=== PATIENT | female | born 1980 | race Caucasian/White ===

== ENCOUNTER 2017-05-09 19:36 | Observation (INO) | payer BC | END 2017-05-09 20:15 | disposition still patient (30) | LOC: FLD 19:36 | PROVIDERS: ADMIT Obstetrics & Gynecology; ATTEND Obstetrics & Gynecology | DX: O99.89 Other specified diseases and conditions complicating pregnancy, childbirth and the puerperium (principal); R42 Dizziness and giddiness; R11.2 Nausea with vomiting, unspecified; Z3A.34 34 weeks gestation of pregnancy | CPT/HCPCS: G0378 ==

== ENCOUNTER 2017-05-09 20:17 | Emergency (ER) | payer BC ==
[2017-05-09] MEDS ORDERED: ONDANSETRON 4 MG/2 ML VIAL ONE (20:22)
--- NOTE | 2017-05-09 20:38 | EDPHY ---
H & P Time Seen by Provider: 05/09/17 20:24 HPI/ROS: CHIEF COMPLAINT: Nausea dizziness HISTORY OF PRESENT ILLNESS: This is a 36-year-old female 34 weeks Ob complaining of dizziness room spinning with nausea onset around 1700. Patient states she she had just recently gotten older upper respiratory infection with sinus pressure, has had this lingering cough with ear pressure but symptoms had been resolving. Patient states she been fine all day today up until 1700 when she went to get up and felt the room was spinning with nausea. Patient states" I spoke with my Ob doctor they wanted me to come to the emergency department to be checked out". Patient was initially seen upstairs on the OB/ L & D floor evaluated Dr. Cassi R.N. stated everything was fine was sent down to the emergency department to be evaluated for ear pressure and dizziness. REVIEW OF SYSTEMS: Constitutional: No fever, no chills. Eyes: No discharge. No blurred vision ENT: No sore throat. Cardiovascular: No chest pain, no palpitations. Respiratory: No cough, no shortness of breath. Gastrointestinal: No abdominal pain, 1 episode of nausea vomiting 34 weeks Ob Genitourinary: No hematuria. Musculoskeletal: No back pain. Skin: No rashes. Neurological: No headache. Intermittent dizziness" room spinning" Physical Exam: General Appearance: Alert, no distress HEENT: Normocephalic atraumatic Pupils equal and round no pallor or injection. TMs non serous middle ear effusion nontender on exam. Mucous membranes moist. Respiratory: There are no retractions, lungs are clear to auscultation. Cardiovascular: Regular rate and rhythm. Gastrointestinal: 34 weeks gestational, nontender Neurological: No focal deficits. Answering questions appropriately Skin: Warm and dry, no rashes. Musculoskeletal: Neck is supple nontender. Extremities: symmetrical, full range of motion. Psychiatric: Patient is oriented X 3, acting appropriately Constitutional: Initial Vital Signs Temperature (C) 36.8 C 05/09/17 20:17 Heart Rate 65 05/09/17 20:17 Respiratory Rate 16 05/09/17 20:17 Blood Pressure 118/62 05/09/17 20:17 O2 Sat (%) 99 05/09/17 20:17 O2 Delivery Mode Room Air Allergies/Adverse Reactions: amoxicillin Allergy (Verified 05/09/17 20:54) Penicillins Allergy (Verified 05/09/17 20:54) Home Medications: Medication Instructions Recorded Acyclovir 05/09/17 Iron 1 tab DAILY 05/09/17 Meclizine HCl [Meclizine HCl 25 mg 25 mg PO BID PRN #10 tab 05/09/17 (RX,OTC)] 1-1 Tablet 1 tab DAILY 05/09/17 Medical Decision Making ED Course/Re-evaluation: Discussed the plan of care with patient: IV fluids for dehydration, meclizine, CBC, BMP. Will re-evaluate 2129: Patient re-evaluation--->NAD, patient denies any nausea vomiting or dizziness. Patient was able to stand up without room spinning. 2199: Patient reports feeling better, "I would like to go home just get some rest". Discharge home---> stable, ambulatory without dizziness or vertigo. Discussed all discharge instructions with patient Differential Diagnosis: Other differential diagnosis considered not limited to syncope, AMS, dehydration , and migraine - Data Points Laboratory Results: Laboratory Results 05/09/17 20:40 05/09/17 20:40 05/09/17 05/09/17 20:40 20:40 WBC 9.65 10^3/uL H 10^3/uL (3.80-9.50) RBC 3.71 10^6/uL L 10^6/uL (4.18-5.33) Hgb 11.3 g/dL L g/dL (12.6-16.3) Hct 33.6 % L % (38.0-47.0) MCV 90.6 fL fL (81.5-99.8) MCH 30.5 pg pg (27.9-34.1) MCHC 33.6 g/dL g/dL (32.4-36.7) RDW 13.7 % % (11.5-15.2) Plt Count 187 10^3/uL 10^3/uL (150-400) MPV 9.8 fL fL (8.7-11.7) Neut % (Auto) 75.6 % H % (39.3-74.2) Lymph % (Auto) 16.1 % % (15.0-45.0) [place] % (Auto) 6.1 % % (4.5-13.0) Eos % (Auto) 0.8 % % (0.6-7.6) Baso % (Auto) 0.3 % % (0.3-1.7) Nucleat RBC Rel Count 0.0 % % (0.0-0.2) Absolute Neuts (auto) 7.29 10^3/uL H 10^3/uL (1.70-6.50) Absolute Lymphs (auto) 1.55 10^3/uL 10^3/uL (1.00-3.00) Absolute Monos (auto) 0.59 10^3/uL 10^3/uL (0.30-0.80) Absolute Eos (auto) 0.08 10^3/uL 10^3/uL (0.03-0.40) Absolute Basos (auto) 0.03 10^3/uL 10^3/uL (0.02-0.10) Absolute Nucleated RBC 0.00 10^3/uL 10^3/uL (0-0.01) Immature Gran % 1.1 % % (0.0-1.1) Immature Gran # 0.11 10^3/uL H 10^3/uL (0.00-0.10) Sodium 140 mEq/L mEq/L (134-144) Potassium 3.5 mEq/L mEq/L (3.5-5.2) Chloride 109 mEq/L mEq/L (97-110) Carbon Dioxide 20 mEq/l L mEq/l (22-31) Anion Gap 11 mEq/L mEq/L (8-16) BUN 5 mg/dL L mg/dL (7-23) Creatinine 0.5 mg/dL L mg/dL (0.6-1.0) Estimated GFR > 60 Glucose 70 mg/dL mg/dL (70-100) Calcium 8.8 mg/dL mg/dL (8.5-10.4) Medications Given: Discontinued Medications Meclizine HCl (Meclizine Hcl) 25 mg PO EDNOW ONE Stop: 05/09/17 20:43 Last Admin: 05/09/17 20:53 Dose: 25 mg Departure - Departure Disposition: Home, Routine, Self-Care Clinical Impression: Acute effusion of both middle ears, Vertigo Condition: Good Instructions: Vertigo (ED), Dizziness (ED) Additional Instructions: 1. Increase fluid intake. Rest 2. 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 I have given you a prescription for meclizine this is a safe medication for during for vertigo Referrals: NONE *PRIMARY CARE P,. [Primary Care Provider] - As per Instructions [facility],. [Clinic] - As per Instructions Prescriptions: Meclizine HCl [Meclizine HCl 25 mg (RX,OTC)] 25 mg PO BID PRN #10 tab PRN Reason: Dizziness
[2017-05-09] MEDS ORDERED: MECLIZINE HCL 25 MG TAB PO ONE ×2 (20:42→22:08)
[2017-05-09 20:58] LABS: % IMMATURE GRANULYOCYTES 1.1 % (0.0-1.1); ABSOLUTE IMMATURE GRANULOCYTES 0.11 10^3/uL (0.00-0.10); ADD DIFF? NO; ADD MORPH? NO; ADD SCAN? NO; ATYPICAL LYMPHOCYTE FLAG 20 (0-99); FRAGMENT RBC FLAG 0 (0-99); HEMATOCRIT 33.6 % (38.0-47.0); HEMOGLOBIN 11.3 g/dL (12.6-16.3); LEFT SHIFT FLG 10 (0-99); LIPEMIA HEMOLYSIS FLAG 80 (0-99); MEAN CELL HEMOGLOBIN 30.5 pg (27.9-34.1); MEAN CELL HEMOGLOBIN CONCENTR. 33.6 g/dL (32.4-36.7); MEAN CELL VOLUME 90.6 fL (81.5-99.8); MEAN PLATELET VOLUME 9.8 fL (8.7-11.7); PLATELET CLUMPS FLAG 0 (0-99); PLATELET COUNT 187 10^3/uL (150-400); RED BLOOD CELL COUNT 3.71 10^6/uL (4.18-5.33); RED CELL DISTRIBUTION WIDTH 13.7 % (11.5-15.2)
[2017-05-09 21:10] LABS: ANION GAP 11 mEq/L (8-16); CALCIUM 8.8 mg/dL (8.5-10.4); CARBON DIOXIDE 20 mEq/l (22-31); CHLORIDE 109 mEq/L (97-110); CREATININE 0.5 mg/dL (0.6-1.0); GLOMERULAR FILTRATION RATE > 60; GLUCOSE 70 mg/dL (70-100); POTASSIUM 3.5 mEq/L (3.5-5.2); SODIUM 140 mEq/L (134-144)
[2017-05-09 21:18] VITALS: RESP 16; TEMP 98.2; O2SAT 99
[2017-05-09 22:16] VITALS: BP 105/62; PULSE 83
== END 2017-05-09 22:16 | disposition home or self-care (01) ==
DX: H65.193 Other acute nonsuppurative otitis media, bilateral (principal)
CPT/HCPCS: J2405

== ENCOUNTER 2017-06-16 19:58 | Inpatient (IN) | payer BC ==
[2017-06-16] MEDS ORDERED: TERBUTALINE SULFATE 1 MG/ML VIAL IV PRN (21:59)
[2017-06-16] MEDS ORDERED: LR 1,000 ML IV PRN (21:59)
[2017-06-16] MEDS ORDERED: IBUPROFEN 600 MG TAB PO PRN (21:59)
[2017-06-16] MEDS ORDERED: OXYTOCIN/RINGERS LACTATE 1,000 ML IV PRN (21:59)
[2017-06-16] MEDS ORDERED: OLIVE OIL 118 ML BTL MISC PRN (21:59)
[2017-06-16] MEDS ORDERED: EPSOM SALT 454 GM TP PRN (21:59)
[2017-06-16 22:18] LABS: % IMMATURE GRANULYOCYTES 0.7 % (0.0-1.1); ABSOLUTE IMMATURE GRANULOCYTES 0.08 10^3/uL (0.00-0.10); ADD DIFF? NO; ADD MORPH? NO; ADD SCAN? NO; ATYPICAL LYMPHOCYTE FLAG 10 (0-99); FRAGMENT RBC FLAG 0 (0-99); HEMATOCRIT 37.5 % (38.0-47.0); HEMOGLOBIN 12.8 g/dL (12.6-16.3); LEFT SHIFT FLG 10 (0-99); LIPEMIA HEMOLYSIS FLAG 90 (0-99); MEAN CELL HEMOGLOBIN 31.2 pg (27.9-34.1); MEAN CELL HEMOGLOBIN CONCENTR. 34.1 g/dL (32.4-36.7); MEAN CELL VOLUME 91.5 fL (81.5-99.8); MEAN PLATELET VOLUME 10.1 fL (8.7-11.7); PLATELET CLUMPS FLAG 0 (0-99); PLATELET COUNT 191 10^3/uL (150-400); RED CELL DISTRIBUTION WIDTH 14.1 % (11.5-15.2)
[2017-06-16] MEDS ORDERED: LIDOCAINE 1% 300 MG/30 ML SDV ONE (22:28)
[2017-06-16] MEDS ORDERED: OLIVE OIL 118 ML BTL ONE (22:28)
[2017-06-16] MEDS ORDERED: MISOPROSTOL 200 MCG TAB ONE (22:29)
[2017-06-16] MEDS ORDERED: OXYTOCIN 10 UNIT/ML VIAL ONE (22:29)
[2017-06-16] MEDS ORDERED: AMMONIA AROMATIC 1 EACH AMP IH ONE (22:29)
[2017-06-16] MEDS ORDERED: TERBUTALINE SULFATE 1 MG/ML VIAL ONE (22:29)
[2017-06-16] MEDS ORDERED: VANCOMYCIN HCL/NORMAL SALINE 250 ML IV SCH (23:00)
[2017-06-16] MEDS ORDERED: PHENYLEPHRINE HCL 100 MCG/ML SYR ONE ×2 (23:07→23:08)
[2017-06-16] MEDS ORDERED: fentaNYL 2MCG/ML/BUP 0.1% RTU 100 ML BAG EP ONE (23:07)
--- NOTE | 2017-06-16 23:28 | OBPROG ---
OBG Labor Progress Note Assessment/Plan: Assessment: 36 y/o @ 39 4/7 wks who presents with previous c/s in early labor, desires Plan: SROM - clear fluid noted FHTs -Category I tracing No cervical change noted on repeat exam Pt is considering an epidural Has a car cooper present 06/16/17 23:24 Subjective: Pt is having pain with ctx's and has tried TENS unit with minimal relief. She is c/o +LOF - big gush of fluid noted. Objective: 06/16/17 21:55 Patient ABO/Rh O POSITIVE 06/16/17 21:55 - SVE Dilation (cm): 3 (3-4) Effacement (%): 90 Station: -2 Oxytocin Orders Assessment - Pre-Induction/Augmentation Assessment Gestational Age: 39 week(s) and 4 day(s) ICD10 Worksheet Patient Problems: Problems Problem Status Onset Desires (vaginal after ) trial Acute GBS (group B Streptococcus carrier), +RV culture, currently Acute Previous delivery affecting , antepartum Acute - ICD10 Problem Qualifiers (1) Previous delivery affecting , antepartum (2) Desires (vaginal after ) trial (3) GBS (group B Streptococcus carrier), +RV culture, currently
--- NOTE | 2017-06-16 23:40 | PREANESOB ---
Obstetric Pre-Anesthesia Info - General Info : 3 Para: 1 - Info Status: Full Term FHR Pattern: Reassuring - Labor Status Cervical Dilation per last OB SVE: 3 (3-4) Station per last OB SVE: -2 Indications for Labor Analgesia: Pain Control Labor Epidural: Yes Anesthesia Allergies/Adverse Reactions: Allergy/AdvReac Type Severity Reaction Status Date / Time amoxicillin Allergy Verified 05/09/17 20:54 Penicillins Allergy Verified 05/09/17 20:54 Home Medications: Medication Instructions Recorded Acyclovir 05/09/17 Iron 1 tab DAILY 05/09/17 Meclizine HCl [Meclizine HCl 25 mg 25 mg PO BID PRN #10 tab 05/09/17 (RX,OTC)] 1-1 Tablet 1 tab DAILY 05/09/17 Visit Medications: Generic Name Dose Route Start Last Admin Trade Name Freq PRN Reason Stop Dose Admin Lactated Ringer's 1,000 mls @ 0 mls/hr 06/16/17 21:59 06/16/17 22:57 Lr IV 12/13/17 21:58 1,000 mls PRN PRN Administration SEE PROTOCOL CONDITIONS Protocol Per Protocol Oxytocin/Lactated Ringer's 1,000 mls @ 150 mls/hr 06/16/17 21:59 Pitocin 20 Units/Lr (Premix) IV PRN PRN Post- bleeding Vancomycin/Sodium Chloride 250 mls @ 250 mls/hr 06/16/17 23:00 06/16/17 22:50 Vancomycin 1 Gm (Premix) IV 07/16/17 22:59 250 mls Q12H CYNDIE Administration Fentanyl/Bupivacaine HCl 100 mls @ 0 mls/hr 06/16/17 23:45 Fentanyl/Bupivacaine/Ns 2 Mcg/Ml 0.1% (Premix EP 06/26/17 23:44 CONT CYNDIE Protocol As Directed Lactated Ringer's 500 mls @ 0 mls/hr 06/16/17 23:45 Lr IV 12/13/17 23:44 CONT CYNDIE As Directed Ibuprofen 600 mg 06/16/17 21:59 Motrin PO 12/13/17 21:58 Q6HRS PRN post , inflammation Magnesium Sulfate 454 gm 06/16/17 21:59 Epsom Salt TP 12/13/17 21:58 Q1H PRN perineal discomfort [place] Oil 118 ml 06/16/17 21:59 Sweet Oil MISC 12/13/17 21:58 ONCE PRN preneal massage Terbutaline Sulfate 0.25 mg 06/16/17 21:59 Brethine IV 12/13/17 21:58 ONCE PRN Tachysystole Discontinued Medications Generic Name Dose Route Start Last Admin Trade Name Nichole PRN Reason Stop Dose Admin Ammonia (Aromatic Spirit) Confirm 06/16/17 22:29 Ammonia Aromatic Administered 06/16/17 22:30 Dose 1 each IH .STK-MED ONE Ephedrine Sulfate Confirm 06/16/17 22:29 Ephedrine Sulfate Administered 06/16/17 22:30 Dose 50 mg .ROUTE .STK-MED ONE Fentanyl/Bupivacaine HCl Confirm 06/16/17 23:07 Fentanyl/Bupivacaine/Ns 2 Mcg/Ml 0.1% (Premix Administered 06/16/17 23:08 Dose 100 ml EP .STK-MED ONE Lidocaine HCl Confirm 06/16/17 22:28 Lidocaine Hcl 1% Administered 06/16/17 22:29 Dose 300 mg .ROUTE .STK-MED ONE Misoprostol Confirm 06/16/17 22:29 Cytotec Administered 06/16/17 22:30 Dose 800 mcg .ROUTE .STK-MED ONE [place] Oil Confirm 06/16/17 22:28 Sweet Oil Administered 06/16/17 22:29 Dose 118 ml .ROUTE .STK-MED ONE Oxytocin Confirm 06/16/17 22:29 Pitocin Administered 06/16/17 22:30 Dose 40 unit .ROUTE .STK-MED ONE Phenylephrine HCl Confirm 06/16/17 23:07 Neosynephrine Administered 06/16/17 23:08 Dose 1,000 mcg .ROUTE .STK-MED ONE Phenylephrine HCl Confirm 06/16/17 23:08 Neosynephrine Administered 06/16/17 23:09 Dose 1,000 mcg .ROUTE .STK-MED ONE Terbutaline Sulfate Confirm 06/16/17 22:29 Brethine Administered 06/16/17 22:30 Dose 1 mg .ROUTE .STK-MED ONE - Anesthesia History Response to Local Anesthetics: Not Applicable Anesthesia & Operative History: No Prior Problems - Focused Exam Height/Weight (Nursing): Height 160.02 cm Weight 71.668 kg Respiratory: normal breath sounds Cardiovascular: normal peripheral pulses ASA Status: I Labs: 08/23/17 21:55 Patient ABO/Rh O POSITIVE 06/16/17 21:55 - Plan Anesthetic Plan: Labor epidural Consent Signed and on Chart: Yes
[2017-06-16] MEDS ORDERED: fentaNYL 2MCG/ML/BUP 0.1% RTU 100 ML EP SCH (23:45)
[2017-06-16] MEDS ORDERED: LR 500 ML IV SCH (23:45)
[2017-06-16] MEDS ORDERED: LIDO/EPI 2% **for epidural** 20 ML SDV ONE (23:46)
--- NOTE | 2017-06-17 00:09 | GHP ---
[f rep st] HISTORY AND PHYSICAL DATE OF ADMISSION: 06/16/2017 ADMITTING DIAGNOSES: 1. Intrauterine at 39 weeks and 4 days. 2. Early labor. 3. Previous section, desires a vaginal after . HISTORY OF PRESENT ILLNESS: Patient is a 36-year-old, 3, para 1-0-1-1, at 39 and 4/7 weeks with estimated due date 06/19/2017. This was by last menstrual period, 09/11/2016, and confirmed by first-trimester ultrasound. Patient presents with complaints of painful contractions for the past several hours every 3-4 minutes. Denies any leakage of fluid or vaginal bleeding. Good movement noted. Patient does desire a , has a history of a C- section. Consents were obtained. Patient does have good care at [facility], and presented her 1st trimester. is complicated by AMA. All genetic testing is negative. Previous secondary to arrest of dilation and descent. 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 There are no active lesions on exam. On growth ultrasound at 35 weeks, estimated weight 87th percentile. Patient has a conciliator present at this time. Patient is GBS positive. She is penicillin allergic and sensitivities reveal resistance to clindamycin PAST OB HISTORY: A full-term secondary to arrest of dilatation and descent, baby was over 10 pounds. Missed AB x1, she did not require a D and C. PAST SKEIN WINDER HISTORY: Age of menarche 11. Cycles are every 28 days for 4-5 days. History of positive high-risk HPV. Patient denies exposure to any other sexually transmitted diseases. PAST MEDICAL HISTORY: Unremarkable. PAST SURGICAL HISTORY: . MEDICATIONS: Current medications are vitamins, DHA. ALLERGIES: Penicillin. SOCIAL HISTORY: Patient is , lives with and their child. She denies any alcohol, tobacco, or illicit drug use. FAMILY HISTORY: Noncontributory. REVIEW OF SYSTEMS: 10-point review of systems negative and pertinent positives noted in HPI. LABS: O positive, antibody negative. RPR nonreactive. Hepatitis B surface antigen negative. HIV negative. Rubella immune. H and H 11.1 and 33.5. One-hour Glucola 89. GC chlamydia negative. GBS is positive. PHYSICAL EXAMINATION: VITAL SIGNS: On admission, vital signs are stable. Patient is afebrile. GENERAL: A well-nourished well-developed female, alert and oriented x3. Mild distress secondary to painful contractions. CARDIOVASCULAR: Regular rate and rhythm. LUNGS: Clear to auscultation. ABDOMEN: Gravid, soft. Nontender, nondistended. EXTREMITIES: Normal to inspection without calf tenderness or edema. PELVIC: Patient is found to be 3- 4 cm, 90%, -2 station. heart tones category 1 tracing with a baseline 130 beats per minute. Positive accelerations. No decelerations. Moderate variability. She is juan josé every 3-4 minutes on [place]. ASSESSMENT: Patient is a 36-year-old, 3, para 1-0-1-1, at 39 and 4/7 weeks with a previous section who presents in early labor and desires a vaginal after . PLAN: 1. Admit to labor and delivery for expectant management. 2. GBS cultures positive. Patient is penicillin allergic with sensitivities showing resistance to Clinda. Will give vancomycin 1 gm q12 hours when active. 3. [facility] consents of chart. 4. Will recheck for cervical change in 1-2 hours. /[id number]/MODL MTDD
[2017-06-17] MEDS ORDERED: fentaNYL 100 MCG/2 ML INJ ONE ×3 (00:26→07:48)
[2017-06-17] MEDS ORDERED: ONDANSETRON 4 MG/2 ML VIAL ONE (03:19)
[2017-06-17] MEDS ORDERED: ONDANSETRON 4 MG/2 ML VIAL IVP PRN (03:26)
[2017-06-17] MEDS ORDERED: ACETAMINOPHEN 325 MG TAB PO ONE (04:30)
[2017-06-17] MEDS ORDERED: LIDO/EPI 2% **for epidural** 20 ML SDV ONE ×2 (04:37→07:48)
--- NOTE | 2017-06-17 04:55 | OBPROG ---
OBG Labor Progress Note Assessment/Plan: Assessment: 36 y/o @ 39 5/7 wks who presents with previous c/s in active labor, who desires , with a maternal fever Plan: Pt has been pushing x 45 min with little descent of head Discussed having pt labor down if we can get her comfortable Anesthesiology notified and pt rebolused FHTs -Category II tracing with intermittent variable decels, tachycardic Will cont to closely monitor Maternal fever with Tmax 38.6 Will start abx for Chorio with Clindamycin and Gentamicin; DATA CENTER ARCHITECT notified Tylenol prn fever Fluid bolus 06/17/17 04:50 Subjective: Pt has the urge to push and states pain down in lower abdomen and down below. Objective: 06/16/17 21:55 Patient ABO/Rh O POSITIVE 06/16/17 21:55 - SVE Dilation (cm): 10 Effacement (%): 100 Station: +1 [place] Current Contraction Pattern: Regular FHR (bpm): 170 FHR Pattern Variability: Moderate FHR Category: 1 Membranes: SROM Amniotic Fluid Color: Clear Oxytocin Orders Assessment - Pre-Induction/Augmentation Assessment Gestational Age: 39 week(s) and 4 day(s) ICD10 Worksheet Patient Problems: Problems Problem Status Onset Desires (vaginal after ) trial Acute GBS (group B Streptococcus carrier), +RV culture, currently Acute Previous delivery affecting , antepartum Acute - ICD10 Problem Qualifiers (1) Previous delivery affecting , antepartum (2) Desires (vaginal after ) trial (3) GBS (group B Streptococcus carrier), +RV culture, currently
[2017-06-17] MEDS ORDERED: GENTAMICIN 100 MG/NACL 100 ML IV SCH (05:00)
[2017-06-17] MEDS: CLINDAMYCIN 900 MG/DEXTROSE 50 ML IV SCH ×2 (05:11→14:45)
[2017-06-17] MEDS ORDERED: METHYLERGONOVINE MAL 0.2 MG/ML INJ ONE (07:39)
[2017-06-17] MEDS ORDERED: NITROGLYCERIN 0.4 MG BTL SL ONE (07:45)
[2017-06-17] MEDS ORDERED: SIMETHICONE 80 MG TAB CHEW PO PRN (08:00)
[2017-06-17] MEDS ORDERED: HYDROCORTISONE 0.5% CREAM TP PRN (08:00)
--- NOTE | 2017-06-17 08:05 | OBDEL ---
Info Type: Vaginal GBS+: Yes Antibiotic Used for + GBS: Vancomycin Number of Antibiotic Doses Given: 1 Indications for Delivery: Spontaneous Labor (Previous c/s - desires ) Vaginal Delivery - Labor and Delivery Onset of Contractions Date: 06/16/17 Onset of Contractions Time: 14:00 Onset of Contractions Type: Spontaneous Rupture of Membranes Date: 06/16/17 Rupture of Membranes Time: 21:30 Rupture of Membranes Type: Spontaneous Amniotic Fluid Color: Clear Dilation Complete Date: 06/17/17 Dilation Complete Time: 03:00 Placenta Delivery Date: 06/17/17 Placenta Delivery Time: 07:50 Total Hours of Labor: 17 Laceration: 2nd Degree Repair: 3-0, Vicryl Vaginal Sponge Count Correct: Yes Vaginal Needle Count Correct: Yes Vaginal Sweep Performed: Yes EBL: 500 cc Delivery Events: Retained Placenta (Placenta was manually removed and then uterus was curetted with a Samm's curette to remove any remaining placenta. This was done under u/s guidance until all placental fragments were removed. Cytotec 800 mcg was then placed [place] to help with bleeding. Bledding had slowed and uterus was firm.) - Medications Labor Augmentation/Induction Methods Used: Pitocin Labor Augmentation/Induction Indication: Other (Specify) (ctx's spaced out during pushing) [place] Data [place] Delivery Date: 06/17/17 Delivery Time: 07:10 CINTIA: 06/19/17 Gestational Age: 39 week(s) and 5 day(s) Sex of : Male Score (1 Min): 8 Score (5 Min): 9 ICD10 Worksheet Patient Problems: Problems Problem Status Onset Desires (vaginal after ) trial Acute GBS (group B Streptococcus carrier), +RV culture, currently Acute Previous delivery affecting , antepartum Acute (vaginal after ) Acute - ICD10 Problem Qualifiers (1) Previous delivery affecting , antepartum (2) Desires (vaginal after ) trial (3) GBS (group B Streptococcus carrier), +RV culture, currently (4) (vaginal after )
[2017-06-17] MEDS: HYDROCODONE/APAP 5/325 TAB PO PRN ×3 (12:52→20:47)
[2017-06-17] MEDS: IBUPROFEN 600 MG TAB PO PRN ×2 (15:56→22:00)
[2017-06-17] MEDS ORDERED: GENTAMICIN 100 MG/NACL 100 ML IV ONE (16:15)
[2017-06-17] MEDS: DOCUSATE SODIUM 100 MG CAP PO PRN (20:47)
[2017-06-18] MEDS: HYDROCODONE/APAP 5/325 TAB PO PRN ×4 (00:53→21:55)
[2017-06-18] MEDS: IBUPROFEN 600 MG TAB PO PRN ×3 (04:18→19:40)
--- NOTE | 2017-06-18 08:05 | OBPP ---
Progress Note Assessment/Plan: Assessment: 1) s/p PPD # 1 - pt is stable 2) Chorio - s/p abx, afebrile 3) Retained placenta - s/p manual extraction and Curettage, lochia wnl Plan: Continue routine pp care No further abx needed, s/p abx x 1 dose pp Plan for d/c home in am 06/19 Subjective: Pt seen and examined. Doing well with no complaints. She is tired and sore. Mild cramping. Mod lochia. Pt is OOB, pascual reg diet, voiding and passing flatus. No BM yet. BF well thus far. Denies any f/c/n/v Objective: 06/16/17 21:55 Patient ABO/Rh O POSITIVE 06/16/17 21:55 Temp Pulse Resp BP Pulse Ox 36.7 C 79 16 83/48 L 94 06/17/17 19:40 06/17/17 19:40 06/17/17 19:40 06/17/17 19:40 06/17/17 19:40 Uterine Position/Fundal Height: Umbilicus -2 Uterine Tone: Firm Physical Exam - Physical Exam General Appearance: WD/WN, alert, no apparent distress Respiratory: lungs clear, normal breath sounds Cardiac/Chest: regular rate, rhythm Abdomen: normal bowel sounds, non-tender, soft, flatus (+) Extremities: non-tender, normal inspection Skin: normal color, warm/dry Neuro/Psych: alert, normal mood/affect, oriented x 3
[2017-06-18] MEDS: DOCUSATE SODIUM 100 MG CAP PO PRN ×2 (08:24→19:40)
[2017-06-19] MEDS: IBUPROFEN 600 MG TAB PO PRN ×2 (02:09→08:50)
[2017-06-19] MEDS: HYDROCODONE/APAP 5/325 TAB PO PRN ×2 (03:49→08:50)
[2017-06-19] MEDS: DOCUSATE SODIUM 100 MG CAP PO PRN (08:50)
[2017-06-19 11:17] VITALS: BP 106/61; PULSE 88; RESP 17; TEMP 97.7; O2SAT 95
--- NOTE | 2017-06-19 12:28 | OBPP ---
Progress Note Assessment/Plan: Assessment: PPD 2 s/p - symphysis pain and instability - using walker Plan: D/C home, call is cont pain / instability 06/19/17 12:24 Subjective: Pt doing well. working on BF and baby is latching shallowly sometimes. Bld has decreased. urinating fine. Sm BM this am. using pain meds as needed for pain. Has a PT that she will f/u with and has ordered an SI belt. Objective: 06/16/17 21:55 Patient ABO/Rh O POSITIVE 06/16/17 21:55 Temp Pulse Resp BP Pulse Ox 36.5 C 88 17 106/61 95 06/19/17 08:00 06/19/17 08:00 06/19/17 08:00 06/19/17 08:00 06/19/17 08:00 Uterine Position/Fundal Height: Umbilicus -2 Uterine Tone: Firm Physical Exam - Physical Exam General Appearance: WD/WN, alert, no apparent distress Abdomen: non-tender, soft, other (lochia normal) Extremities: non-tender, pedal edema (mild) Skin: normal color, warm/dry Neuro/Psych: normal mood/affect
--- NOTE | 2017-06-19 12:40 | OBGCSDC ---
General Delivery Information - General Info : 3 Para: 2 Delivery Physician/CNM: Myra Cox Admission Date: 06/16/17 Labs: Patient ABO/Rh O POSITIVE 06/16/17 21:55 Hct 37.5 % (38.0-47.0) L 06/16/17 21:55 Vaginal - Diagnosis Labor: Spontaneous Presentation at Delivery: Vertex Rupture of Membranes Type: Spontaneous Amniotic Fluid Color: Clear Laceration: 2nd Degree Repair: 3-0, Vicryl Delivery Events: Retained Placenta (Placenta was manually removed and then uterus was curetted with a Samm's curette to remove any remaining placenta. This was done under u/s guidance until all placental fragments were removed. Cytotec 800 mcg was then placed [place] to help with bleeding. Bledding had slowed and uterus was firm.) - Operations/Procedures L&D Analgesia/Anesthesia Type: Epidural, IV Narcotics - Hospital Course Antepartum: AMA with third trimester u/s showing LGA 87%. h/o LGA del by C/S - desires . HSV on proph. Intrapartum: SOOC. good progress through labor. fever near pushing. ABX for chorio - +GBS. successful and retained placenta with manual extraction - under u/s guidance and given cytotec : SP pain and needing [place] and walker for mobility. ordered SI belt and had PT assess. BF well. - Delivery L&D Analgesia/Anesthesia Type: Epidural, IV Narcotics Data [place] Delivery Date: 06/17/17 Delivery Time: 07:10 CINTIA: 06/19/17 Gestational Age: 40 week(s) and 0 day(s) Sex of : Male Mar Lin Weight (gm): 4337.477 g Score (1 Min): 8 Score (5 Min): 9 Discharge Information - Discharge Information Discharge Medications: Hydrocodone (script for 30), Ibuprofen, Vitamins Condition: Good Instruction/Follow Up: See Instruction Sheet, Four Weeks (with therapist), Six Weeks Discharge Physician/CNM: Anne-Marie Ye
== END 2017-06-19 14:00 | disposition home or self-care (01) | DRG 767 ==
LOC: OBSVTOIN 19:58 → FLD 19:58 → FOB 06-17 18:20
PROVIDERS: ADMIT Obstetrics & Gynecology; ATTEND Obstetrics & Gynecology
PROC: 0KQM0ZZ Repair Perineum Muscle, Open Approach (ICD-10-PCS; principal; 2017-06-16)
PROC: 10D17ZZ Extraction of Products of Conception, Retained, Via Natural or Artificial Opening (ICD-10-PCS; principal; 2017-06-16)
PROC: 10E0XZZ Delivery of Products of Conception, External Approach (ICD-10-PCS; principal; 2017-06-16)
DX: O34.219 Maternal care for unspecified type scar from previous cesarean delivery (principal); O98.52 Other viral diseases complicating childbirth; O86.4 Pyrexia of unknown origin following delivery; O70.1 Second degree perineal laceration during delivery; Z37.0 Single live birth; Z3A.39 39 weeks gestation of pregnancy; B00.9 Herpesviral infection, unspecified; O99.824 Streptococcus B carrier state complicating childbirth; Z88.0 Allergy status to penicillin; O73.0 Retained placenta without hemorrhage
CPT/HCPCS: 97116-GP; 97161-GP; J2210; J2370; J2405; J2590; J3010; J3105; J3370